=== PATIENT | male | born 1960 | race Two or more races ===

== ENCOUNTER 2019-10-09 06:00 | Outpatient (CLI) | payer OTHER | END 2019-10-09 06:10 | disposition home or self-care (01) | LOC: LAB 06:00 → ADM 09:00 → AMB-ENDOS 10-12 09:00 → EDSTATUS 10-12 09:00 | PROVIDERS: ATTEND Colon & Rectal Surgery | DX: K57.20 Diverticulitis of large intestine with perforation and abscess without bleeding (principal); Z93.3 Colostomy status; K92.1 Melena; Z20.828 Contact with and (suspected) exposure to other viral communicable diseases; Z01.812 Encounter for preprocedural laboratory examination ==

== ENCOUNTER 2019-10-19 10:09 | Outpatient (CLI) | payer OTHER | END 2019-10-19 10:25 | disposition home or self-care (01) | LOC: RX STUDY 10:09 | PROVIDERS: ATTEND Colon & Rectal Surgery | DX: K57.20 Diverticulitis of large intestine with perforation and abscess without bleeding (principal); Z93.3 Colostomy status ==

== ENCOUNTER 2019-11-13 11:00 | Inpatient (IN) | payer OTHER ==
[~2019-11-13] VITALS: Ht 167.6 cm; Wt 84.4 kg
== END 2019-11-23 16:59 | disposition home or self-care (01) | DRG 331 ==
LOC: SURH 11-20 07:00 → O/R 11-20 11:50 → SURG 11-20 11:50 → SURH 11-22 19:21
PROVIDERS: ADMIT Colon & Rectal Surgery; ATTEND Colon & Rectal Surgery
PROC: 0DBN4ZZ Excision of Sigmoid Colon, Percutaneous Endoscopic Approach (ICD-10-PCS; 2019-11-20)
PROC: 0DTP4ZZ Resection of Rectum, Percutaneous Endoscopic Approach (ICD-10-PCS; principal; 2019-11-20 07:00)
DX: Z43.3 Encounter for attention to colostomy (principal); K57.30 Diverticulosis of large intestine without perforation or abscess without bleeding